=== PATIENT | female | born 1990 | race Two or more races ===

== ENCOUNTER 2017-07-22 11:25 | Outpatient (CLI) | payer OTHER ==
[2017-07-22 12:50] LABS: THYROID STIMULATING HORMONE 0.73 uIU/mL (0.34-5.60)
[2017-07-22 12:52] LABS: FREE T4 (FREE THYROXINE) 0.8 ng/dL (0.58-1.64)
== END 2017-07-22 11:26 | disposition home or self-care (01) ==
LOC: LAB 11:25
PROVIDERS: ATTEND Nurse Practitioner Obstetrics & Gynecology
DX: Z13.29 Encounter for screening for other suspected endocrine disorder (principal)
CPT/HCPCS: 36415; 84439; 84443

== ENCOUNTER 2018-08-14 08:00 | Outpatient (CLI) | payer OTHER | END 2018-08-14 23:59 | disposition home or self-care (01) | LOC: LAB.R 08:00 | PROVIDERS: ATTEND Obstetrics & Gynecology | DX: Z91.89 Other specified personal risk factors, not elsewhere classified (principal); Z01.419 Encounter for gynecological examination (general) (routine) without abnormal findings | CPT/HCPCS: 87491; 87591 ==

== ENCOUNTER 2018-10-15 08:00 | Outpatient (CLI) | payer OTHER ==
[2018-10-15 21:29] LABS: CANDIDA GROUP DNA NEGATIVE (NEGATIVE); CANDIDA KRUSEI DNA NEGATIVE (NEGATIVE); TRICHOMONAS VAGINALIS DNA NEGATIVE (NEGATIVE)
[2018-10-15 22:06] LABS: TRICHOMONAS VAGINALIS DNA NEGATIVE (NEGATIVE)
== END 2018-10-15 23:59 | disposition home or self-care (01) ==
LOC: LAB.R 08:00
PROVIDERS: ATTEND Obstetrics & Gynecology
DX: N93.9 Abnormal uterine and vaginal bleeding, unspecified (principal); R31.9 Hematuria, unspecified; Z91.89 Other specified personal risk factors, not elsewhere classified
CPT/HCPCS: 87491; 87591; 87661; 87801

== ENCOUNTER 2018-10-21 15:13 | Outpatient (CLI) | payer OTHER ==
--- NOTE | 2018-10-22 01:21 | Ultrasound Report ---
Reason: PELVIC PAIN,IUD SURVEILLANCE,VAGINAL BLEEDING Procedure Date: 10/21/2018 Accession Number: [id number] / [id number] Procedure: US - Pelvic w/Transvaginal CPT Code: FULL RESULT: EXAM: PELVIC ULTRASOUND EXAM DATE: 10/21/2018 04:03 PM. CLINICAL HISTORY: PELVIC PAIN,IUD SURVEILLANCE,VAGINAL BLEEDING. COMPARISON: None. TECHNIQUE: Realtime transabdominal pelvic scan performed to identify the uterus and adnexa and as an overview of other pelvic structures, followed by transvaginal scan to provide greater detail of the uterus and adnexa, with static image documentation. FINDINGS: Uterus: 8.4 x 3.2 x 4.2 cm, volume 59 cc. Anteverted position. Normal overall size and echotexture. Masses: None. Endometrium: 4 mm. IUD present in the lower uterine segment. No focal endometrial abnormalities. Cervix: Unremarkable. Right Ovary: 3.4 x 2.4 x 3.3 cm, volume 14.1 cc. Normal echotexture and blood flow. Left Ovary: 3.1 x 1.7 x 2.5 cm, volume 6.9 cc. Normal echotexture and blood flow. Free Fluid: None. Other: None. IMPRESSION: IUD is present in the lower uterine segment endometrium. [facility]
== END 2018-10-21 15:14 | disposition home or self-care (01) ==
LOC: DI 15:13
PROVIDERS: ATTEND Obstetrics & Gynecology
DX: Z30.431 Encounter for routine checking of intrauterine contraceptive device (principal); R10.2 Pelvic and perineal pain; N93.9 Abnormal uterine and vaginal bleeding, unspecified
CPT/HCPCS: 76830; 76856

== ENCOUNTER 2018-11-18 13:15 | Outpatient (CLI) | payer OTHER ==
--- NOTE | 2018-11-18 14:53 | SLEEP CARE CONSULTATION ---
Information from patient questionnaire entered by Barbara Rinaldi. I have reviewed and concur with the information entered by Barbara Rinaldi. This document represents the service I personally performed and the decisions made by me, Nkechi Gutierrez, RN, MSN, [employer]. 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 ) Toss, Turn, or Twitch while sleeping: Yes Recalls having dreams: Yes Usually gets out of bed at: 6am on work days and 7-8 am Feels refreshed in the morning: No Morning headache: Yes (reports mild generalized headache 50% of time / morning MOYA resolves 2 Hours) Sleepy or fatigued during the day: Yes Ever fallen asleep while driving: No Takes day naps: Yes (recent occasional dozing for about an hour- feels worse. ) Dreams during day naps: No Prior sleep studies: No - Parasomnia Symptoms Ever been unable to move upon waking from sleep: Yes (about 5 times in last few years. 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 Patient is Single and lives in [place]. Have you smoked in the past 12 months: No (smokes small amount of marajuana to sleep twice a week at most. ) Alcohol use: Yes Alcohol amount and frequency: 1 glass a month or less Caffeine use: Yes Caffeine amount and frequency: 1 cup a day Family History Family history of sleep disordered breathing: No Allergies and Home Medications Known drug allergies: No Home medication list reviewed: Yes Allergy and home medication list: ketocanazole cream and shampoo for eczema propanolol 10mg prn anxiety, - none for months Review of Systems Weight gain over past 5 years: 30 Respiratory: reports: shortness of breath (feels like she cannot get a deep enough breath and can be when anxious - denies dyspnea on exertion) Neurological: reports: headaches (mild - generalized and about 50% of time for about a couple of months. ) Psychiatric: reports: anxiety, depression Endocrine: reports: sluggishness, too hot or cold (reports she is cold at work while others are warm and using fan. She is fine out of office. ) Musculoskeletal: reports: joint pain, neck pain, back pain, muscle pain or cramping, other (has recently been told she might have fibromyalgia ) Physical Exam Blood Pressure: 104/70 Cuff size: long Heart Rate: 80 O2 Saturation: 94 Height: 5 ft 1.75 in Weight (kg): 86.727 kg Body Mass Index: 35.2 BMI Classification: Class 2 Nasal exam: positive: erythema (left septum) HEENT: No craniofacial malformation Nostrils: patent to airflow Turbinates: swollen Septum: midline Mouth and throat: narrow oropharynx Soft palate: long Hard palate: normal Uvula: normal Uvula visualization: 50% Mallampati Class II Tongue: normal in size Tonsils: small Chin and jaw: normal size and position Neck: normal w/o lymphadenopathy or thyromegaly Heart: regular rate and rhythm Lungs: clear bilaterally Abdomen: soft Extremities: no edema or clubbing Neurologic: intact Impression and Plan 1. Suspected Obstructive Sleep Apnea-Hypopnea Syndrome, as suggested by a history of loud and irregular snoring, morning headache, frequent awakening during the night, unrefreshed sleep, cognitive impairment, and excessive daytime sleepiness. Narrow oropharynx and obesity are common predisposing factors for obstructive sleep apnea-hypopnea syndrome. I recommend proceeding to polysomnography to confirm the diagnosis and to assess severity. If the patient has significant sleep disordered breathing, a manual CPAP titration study will also be performed to find the optimal treatment pressure. I informed the patient of what the sleep studies involve and after some discussion, obtained agreement to proceed. The pathophysiology of obstructive sleep apnea-hypopnea syndrome was discussed with the patient and health risks of cardiovascular and cerebrovascular disease if not treated. [facility] brochure for obstructive sleep apnea-hypopnea syndrome given and reviewed. Risks of drowsy driving discussed in detail and patient advised to avoid long distance driving and to seedling puller at the first sign of drowsiness. Patient agreed to plan. 2. Insomnia, that could be related to her irregular sleep schedule, children waking her as well as her anxiety / depression as often it takes a while to go to sleep due to things on the mind. I explained how her irregular wake time difference on week days and weekends can contribute to insomnia and unrefreshed sleep. Thus she is advised to wake at same time every day. I also explained how she needs to be awake about 15-16 hours before most people can go to sleep due to physiological changes in the body. In addition, I discussed the importance a relaxing ritual for herself and children to transition to sleep. If unable to go to sleep due to things on mind then she can leave bed and write out concerns as a release. Then she is to engage in a quiet activity such a reading a non electronic book until sleepy and then return to bed. This is to be repeated as often necessary to associate bed with sleep. I also cautioned her on use of marjuana for sleep as recent news reports shows higher potency and she states she is sensitive. It would be better to implement above measures. [facility] How to Sleep Better pamphlet given and reviewed. I also informed her of patient education on [facility] web site for childrens sleep. Schedule polysomnography or home sleep study dependent upon insurance authorization. Avoid long distance driving or driving when feeling sleepy. Avoid alcohol, sedative and muscle relaxant around bedtime. Attempt to lose weight. Review instructions provided by trained office staff on how to prepare for the sleep study. Implement methods to reduce insomnia. Follow up with PCP for further evaluation of mild generalized headaches, back pain disrupting sleep and periodic dyspnea noted in ROS Return for follow-up after sleep study completed. I spent 100% of this 55 minute visit face to face with the patient with greater than 50% of this was spent time counseling the patient and coordination of care.
[2018-11-18 14:54] VITALS: BP 104/70
== END 2018-11-18 13:16 | disposition home or self-care (01) ==
LOC: SC 13:15
PROVIDERS: ATTEND Nurse Practitioner Family
DX: G47.10 Hypersomnia, unspecified (principal); G47.8 Other sleep disorders; R41.89 Other symptoms and signs involving cognitive functions and awareness; R06.83 Snoring; R51 Headache
CPT/HCPCS: 99204; 99212

== ENCOUNTER 2019-06-26 14:32 | Outpatient (CLI) | payer OTHER ==
--- NOTE | 2019-06-26 16:05 | Ultrasound Report ---
Reason: VAGINAL BLEEDING Procedure Date: 06/26/2019 Accession Number: [id number] / [id number] Procedure: US - Pelvic w/Transvaginal CPT Code: Final Report FULL RESULT: EXAM: PELVIC ULTRASOUND EXAM DATE: 06/26/2019 03:34 PM. CLINICAL HISTORY: Dysfunctional uterine bleeding, pelvic pain. IUD placed in 2019. String not identified. COMPARISON: Pelvic ultrasound from 10/21/2018. TECHNIQUE: Realtime transabdominal pelvic scan performed to identify the uterus and adnexa and as an overview of other pelvic structures, followed by transvaginal scan to provide greater detail of the uterus and adnexa, with static image documentation. FINDINGS: Uterus: 8.4 x 4.0 x 5.5 cm, volume 97 cc. Anteverted position. Normal overall size and echotexture. Masses: None. Endometrium: 10 mm. Thickness is within normal limits. No intrauterine device identified. Cervix: Nabothian cysts present. Right Ovary: 3.6 x 2.9 x 2.5 cm, volume 13.5 cc. Normal echotexture and blood flow. Multiple small follicles are present. Left Ovary: 3.2 x 2.3 x 3.2 cm, volume 12.7 cc. Normal echotexture and blood flow. Multiple small follicles are present. Free Fluid: None. Other: None. IMPRESSION: 1. No intrauterine device identified. Previously, the IUD was low-lying; therefore, it may have been expelled. Uterine perforation and intraperitoneal migration is rare. However, could consider pelvic radiograph to exclude this possibility. 2. Otherwise unremarkable pelvic ultrasound. [facility]
== END 2019-06-26 14:33 | disposition home or self-care (01) ==
LOC: DI 14:32
PROVIDERS: ATTEND Obstetrics & Gynecology
DX: N93.8 Other specified abnormal uterine and vaginal bleeding (principal); N93.9 Abnormal uterine and vaginal bleeding, unspecified
CPT/HCPCS: 76830; 76856

== ENCOUNTER 2019-12-02 07:00 | Outpatient (CLI) | payer OTHER ==
[2019-12-03 21:02] LABS: TRICHOMONAS VAGINALIS DNA NEGATIVE (NEGATIVE)
== END 2019-12-02 23:59 | disposition home or self-care (01) ==
LOC: LAB.R 07:00
PROVIDERS: ATTEND Obstetrics & Gynecology
DX: Z11.3 Encounter for screening for infections with a predominantly sexual mode of transmission (principal)
CPT/HCPCS: 36415; 81599; 83036; 84443; 86592; 86704; 87340; 87389; 87491; 87591; 87661

== ENCOUNTER 2019-12-02 15:38 | Outpatient (CLI) | payer OTHER ==
[2019-12-02 19:10] LABS: HEMOGLOBIN A1c% 5.5 % (4.27-6.07)
[2019-12-03 09:57] LABS: HIV AG/AB 4TH GEN NON-REACTIVE (NON-REACTIVE)
[2019-12-03 13:12] LABS: HEPATITIS B SURFACE ANTIGEN NON-REACTIVE (NON-REACTIVE)
== END 2019-12-02 15:39 | disposition home or self-care (01) ==
LOC: LAB 15:38
PROVIDERS: ATTEND Obstetrics & Gynecology
DX: Z13.1 Encounter for screening for diabetes mellitus (principal); Z11.3 Encounter for screening for infections with a predominantly sexual mode of transmission
CPT/HCPCS: 36415; 81599; 83036; 84443; 86704; 87340; 87389

== ENCOUNTER 2021-01-03 13:55 | Outpatient (CLI) | payer OTHER | END 2021-01-03 13:56 | disposition home or self-care (01) | LOC: COV 13:55 | PROVIDERS: ATTEND Family Medicine | DX: R05 Cough (principal); M79.10 Myalgia, unspecified site; R07.0 Pain in throat; R09.81 Nasal congestion; J34.89 Other specified disorders of nose and nasal sinuses; Z20.822 Contact with and (suspected) exposure to COVID-19 ==

== ENCOUNTER 2022-02-06 15:18 | Outpatient (CLI) | payer OTHER ==
[2022-02-06 15:43] LABS: BASOPHILS # (AUTO) 0.1 10^3/uL (0.0-0.1); BASOPHILS % (AUTO) 0.8 %; EOSINOPHILS # (AUTO) 0.3 10^3/uL (0.0-0.7); EOSINOPHILS % (AUTO) 3.5 %; HCT - HEMATOCRIT 43.3 % (37.0-47.0); HGB - HEMOGLOBIN 14.1 g/dL (12.0-16.0); LYMPHOCYTES # (AUTO) 2.2 10^3/uL (1.5-3.5); LYMPHOCYTES % (AUTO) 24.8 %; MEAN CORPUSCULAR HEMOGLOBIN 28.3 pg (27.0-31.0); MEAN CORPUSCULAR HGB CONC 32.6 g/dL (32.0-36.0); MEAN CORPUSCULAR VOLUME 86.9 fL (81.0-99.0); MONOCYTES # (AUTO) 0.8 10^3/uL (0.0-1.0); MONOCYTES % (AUTO) 8.6 %; NEUTROPHILS # (AUTO) 5.5 10^3/uL (1.5-6.6); PLT - PLATELET COUNT 340 10^3/uL (130-450); RED BLOOD COUNT 4.98 10^6/uL (4.20-5.40); RED CELL DISTRIBUTION WIDTH 12.4 % (12.0-15.0); WHITE BLOOD COUNT 8.9 x10^3/uL (4.8-10.8)
[2022-02-06 16:08] LABS: ALBUMIN 3.9 g/dL (3.2-5.5); BILIRUBIN,TOTAL 0.2 mg/dL (0.2-1.0); CALCIUM 8.8 mg/dL (8.5-10.3); CREATININE 0.6 mg/dL (0.4-1.0); POTASSIUM 3.8 mmol/L (3.5-5.0); TOTAL PROTEIN 7.9 g/dL (6.7-8.2)
[2022-02-06 16:22] LABS: THYROID STIMULATING HORMONE 2.82 uIU/mL (0.34-5.60)
[2022-02-06 20:59] LABS: ESTIMATED AVERAGE GLUCOSE 117 mg/dL (70-100); HEMOGLOBIN A1c% 5.7 % (4.27-6.07)
== END 2022-02-06 15:19 | disposition home or self-care (01) ==
LOC: LAB 15:18
PROVIDERS: ATTEND Physician Assistant
DX: F41.9 Anxiety disorder, unspecified (principal); F32.A Depression, unspecified; E66.9 Obesity, unspecified; Z13.29 Encounter for screening for other suspected endocrine disorder
CPT/HCPCS: 36415; 80053; 83036; 84443; 85025